=== PATIENT | female | born 1990 | race Caucasian/White ===

== ENCOUNTER 2018-05-05 02:45 | Inpatient (IN) | payer OTHER ==
[2018-05-05] MEDS ORDERED: LACTATED RINGER'S 1,000 ML IV (03:29)
[2018-05-05] MEDS ORDERED: CARBOPROST 250 MCG INJ IM ×2 (03:30→05:30)
[2018-05-05] MEDS ORDERED: OXYTOCIN 30 UNITS/LR 500 ML IV ×4 (03:30→05:30)
[2018-05-05] MEDS ORDERED: PENICILLIN G K 5,000,000 UNITS in DEXTROSE 5% 100 ML IVPB (03:30)
[2018-05-05] MEDS ORDERED: MISOPROSTOL 200 MCG TAB PR ×2 (03:30→05:30)
[2018-05-05] MEDS ORDERED: BUTORPHANOL 2 MG INJ IV (03:30)
[2018-05-05] MEDS ORDERED: IBUPROFEN 600 MG TAB PO (03:30)
[2018-05-05] MEDS: LACTATED RINGER'S 1,000 ML IV* ×4 (04:27→13:17)
[2018-05-05 04:43] LABS: ADD MAN DIFF? NO; BASOPHILS % 0.3 % (0.0-2.0); EOSINOPHILS # 0.2 10^3/ul (0.0-0.5); EOSINOPHILS % 1.5 % (0.0-7.0); HEMATOCRIT 33.1 % (37.0-47.0); HEMOGLOBIN 11.2 g/dl (12.0-16.0); LYMPHOCYTES # 3.8 10^3/ul (0.8-2.9); LYMPHOCYTES % 34.8 % (15.0-51.0); MEAN CORPUSCULAR HEMOGLOBIN 30.4 pg (29.0-33.0); MEAN CORPUSCULAR HGB CONC 33.8 g/dl (32.0-37.0); MEAN CORPUSCULAR VOLUME 89.9 fl (82.0-101.0); MEAN PLATELET VOLUME 10.3 fl (7.4-10.4); MONOCYTES % 9.1 % (0.0-11.0); NEUTROPHIL # 5.9 10^3/ul (1.6-7.5); NEUTROPHILS % 53.5 % (39.0-77.0); PLATELET COUNT 200 10^3/UL (140-415); RED BLOOD COUNT 3.68 10^6/ul (4.20-5.40)
[2018-05-05] MEDS: OXYTOCIN 30 UNITS/LR 500 ML IV ×4 (04:54→08:40)
[2018-05-05] MEDS: LIDOCAINE 1% (MPF) 30 ML INJ INJ (04:56)
[2018-05-05] MEDS ORDERED: PENICILLIN G K 2,500,000 UNITS in DEXTROSE 5% 50 ML IVPB ×2 (05:00→09:00)
[2018-05-05 05:02] LABS: INR 0.89; PARTIAL THROMBOPLASTIN TIME 26.9 Sec (25.0-35.0); PROTIME 12.1 Sec (11.9-14.9); PT RATIO 0.9
[2018-05-05] MEDS ORDERED: DIBUCAINE 1% 30 GM OINT PR (05:30)
[2018-05-05] MEDS ORDERED: HYDROCODONE/APAP (5/325) TAB PO ×2 (05:30)
[2018-05-05] MEDS ORDERED: METHYLERGONOVINE 0.2 MG INJ IM (05:30)
[2018-05-05] MEDS: METHYLERGONOVINE 0.2 MG INJ IM (05:51)
[2018-05-05 06:27] LABS: HEPATITIS B SURFACE ANTIGEN NEGATIVE (NEGATIVE)
[2018-05-05] MEDS: IBUPROFEN 600 MG TAB PO ×4 (08:40→23:27)
[2018-05-05] MEDS: BENZOCAINE 20% 56 ML SPRAY TOP (12:00)
[2018-05-05] MEDS: WITCH HAZEL/GLYCERIN PAD PR (12:00)
[2018-05-05] MEDS: LANOLIN 7 GM TUBE TOP (12:01)
[2018-05-05 19:17] LABS: RAPID PLASMA REAGIN NONREACTIVE (NR)
[2018-05-06] MEDS: IBUPROFEN 600 MG TAB PO ×3 (05:42→17:43)
[2018-05-06 09:01] LABS: ADD MAN DIFF? NO
[2018-05-06 09:15] LABS: WHITE BLOOD COUNT 9.1 10^3/ul (4.8-10.8)
[2018-05-06 09:15] LABS: BASOPHILS % 0.3 % (0.0-2.0); EOSINOPHILS # 0.2 10^3/ul (0.0-0.5); HEMATOCRIT 26.5 % (37.0-47.0); HEMOGLOBIN 8.9 g/dl (12.0-16.0); LYMPHOCYTES % 33.3 % (15.0-51.0); MEAN CORPUSCULAR HEMOGLOBIN 30.4 pg (29.0-33.0); MEAN CORPUSCULAR HGB CONC 33.6 g/dl (32.0-37.0); MEAN CORPUSCULAR VOLUME 90.4 fl (82.0-101.0); MEAN PLATELET VOLUME 10.4 fl (7.4-10.4); MONOCYTE # 0.7 10^3/ul (0.3-0.9); MONOCYTES % 7.6 % (0.0-11.0); NEUTROPHIL # 5.1 10^3/ul (1.6-7.5); NEUTROPHILS % 56.2 % (39.0-77.0); PLATELET COUNT 162 10^3/UL (140-415); RED BLOOD COUNT 2.93 10^6/ul (4.20-5.40); RED CELL DISTRIBUTION WIDTH 13.4 % (11.5-14.5)
[2018-05-06] MEDS: DOCUSATE SODIUM 100 MG CAP PO (21:00)
[2018-05-06] MEDS: POLYSACCHARIDE IRON COMPLEX CAP PO (21:56)
[2018-05-07] MEDS: IBUPROFEN 600 MG TAB PO ×3 (00:41→12:36)
[2018-05-07] MEDS: MEASLES,MUMPS,RUBELLA VACCINE INJ SC* (09:00)
[2018-05-07] MEDS: DIPHTH/TET/ACEL PERTUSS (ADULT) 0.5 ML VIAL IM* (09:00)
[2018-05-07] MEDS: VARICELLA VACCINE LIVE/PF 1,350 UNIT/0.5 ML ML SC* (09:00)
[2018-05-07] MEDS: POLYSACCHARIDE IRON COMPLEX CAP PO (10:11)
[2018-05-07] MEDS: DOCUSATE SODIUM 100 MG CAP PO (10:11)
== END 2018-05-07 16:00 | disposition home or self-care (01) | DRG 775 ==
LOC: OBT 02:45 → PP1 05-06 11:25 → L-D 02:45 → OBT 03:15 → L-D 03:15 → PP1 08:39
PROVIDERS: Obstetrics & Gynecology
PROC: 10E0XZZ Delivery of Products of Conception, External Approach (ICD-10-PCS; principal; 2018-05-05)
PROC: 0KQM0ZZ Repair Perineum Muscle, Open Approach (ICD-10-PCS; 2018-05-05)
PROC: 0UQM0ZZ Repair Vulva, Open Approach (ICD-10-PCS; 2018-05-05)
DX: O70.1 Second degree perineal laceration during delivery (principal); O99.02 Anemia complicating childbirth; D64.9 Anemia, unspecified; Z37.0 Single live birth; Z3A.40 40 weeks gestation of pregnancy
CPT/HCPCS: 85025; 85610; 85730; 86592; 86850; 86900; 86901; 87340